=== PATIENT | male | born 1960 | race Caucasian/White ===

== ENCOUNTER → 2019-09-19 12:31 | Outpatient (CLI) | payer OTHER, SELFPAY ==
--- NOTE | 2019-09-19 | DI.RAD.S_ITS ---
PROCEDURE: XR PELVIS 1-2V INDICATIONS: Left leg/hip weakness TECHNIQUE: 2 view(s) of the pelvis acquired. COMPARISON: None. FINDINGS: Bones: No fractures or dislocations. No suspicious bony lesions. There is moderate superior joint space narrowing seen of both hips, with associated remodeling changes with subchondral sclerosis and osteophyte formation. Soft tissues: Visualized bowel gas pattern is normal. No suspicious soft tissue calcifications. IMPRESSION: Moderate degenerative changes are seen of both hips. Dictated by: Luis Felipe Steele M.D. on 09/19/2019 at 12:16 Approved by: Luis Felipe Steele M.D. on 09/19/2019 at 12:17
== END ==
LOC: RAD 12:35
PROVIDERS: PCP Physician Assistant Medical; Referring Provider Physician Assistant Medical; Visit Provider Physician Assistant Medical
DX: G83.14 Monoplegia of lower limb affecting left nondominant side (principal)
CPT/HCPCS: 72170

== ENCOUNTER 2019-10-26 21:51 | Emergency (ER) | payer OTHER, SELFPAY ==
--- NOTE | 2019-10-26 22:02 | ED.FALL ---
HPI - Fall General Chief Complaint: Weakness Stated Complaint: GLF Time Seen by Provider: 10/26/19 21:52 Source: patient and EMS Mode of arrival: EMS Limitations: no limitations History of Present Illness HPI Narrative: 59M non smoker, daily drinker presents by EMS after suffering a fall just prior to arrival. Patient states that he has been suffering trouble with his left leg since a fall in April and states that it has been weak ever since. He has an upcoming MRI to evaluate. He denies any worsening symptoms. He has no trouble controlling bowel or bladder. He denies any numbness or tingling. He states that he had a few drinks tonight was walking out to his car when his leg gave out and he fell. He denies any head or neck pain. He has had no nausea, vomiting or diarrhea. He denies any changes in medications. Denies any new injury MD complaint: fall Onset (ago): minute(s) Fall from: standing Fall witnessed: no Place fall occurred: work Loss of consciousness: none Prolonged down time: no Symptoms prior to fall: lightheadedness Context: tripped/slipped and alcohol use Related Data Previous Rx's Medication Instructions Recorded potassium chloride 20 meq PO DAILY #7 tab 10/26/19 Review of Systems Constitutional Constitutional: Denies chills, Denies fatigue, Denies fever(s), Denies frequent falls, Denies lethargy and Denies weakness Eyes Eyes: Denies change in vision, Denies eye discharge, Denies irritation and Denies loss of vision ENT Ears, Nose, Mouth, and Throat: Denies change in voice, Denies dizziness, Denies neck pain, Denies sore throat and Denies throat swelling Cardiovascular Cardiovascular: Denies chest pain, Denies irregular heart rhythm, Denies lightheadedness, Denies palpitations, Denies dyspnea, Denies dyspnea on exertion and Denies orthopnea Respiratory Respiratory: Denies cough, Denies dyspnea, Denies dyspnea on exertion and Denies wheezing Gastrointestinal Gastrointestinal: Denies abdominal pain, Denies change in bowel habits, Denies diarrhea, Denies nausea and Denies vomiting Genitourinary Genitourinary: Denies hematuria, Denies flank pain, Denies urinary incontinence and Denies urinary urgency Musculoskeletal Musculoskeletal: Denies back pain, Denies muscle weakness, Denies neck pain, Denies numbness and Denies tingling Integumentary/Breasts Skin/Breast: Denies pruritus, Denies erythema, Denies rash and Denies wounds Neurologic Neurologic: Denies behavioral changes, Denies confusion, Denies dizziness, Denies frequent falls, Denies loss of vision, Denies numbness, Denies tingling and Denies weakness Psychiatric Psychiatric: Denies anxiety, Denies behavioral changes, Denies confusion, Denies depression, Denies homicidal ideation and Denies suicidal ideation Endocrine Endocrine: Denies fatigue, Denies flushing and Denies palpitations Hematologic/Lymphatic Hematologic/Lymphatic: Denies easy bruising Allergic/Immunologic Allergic/Immunologic: Denies urticaria, Denies throat swelling and Denies wheezing Exam Narrative Exam Narrative: GENERAL: [59] year old patient appears stated age. Well-nourished, well-developed patient, in mild distress. HEAD: Atraumatic. Normocephalic. EYES: Pupils equal round and reactive. Extraocular motions intact. No scleral icterus. No injection or drainage. ENT: Nose without bleeding, purulent drainage. Throat without erythema, tonsillar hypertrophy or exudate. Airway patent. NECK: Trachea midline. Non tender CARDIOVASCULAR: Regular rate and rhythm without murmurs, gallops, or rubs. RESPIRATORY: Clear to auscultation. Breath sounds equal bilaterally. No wheezes, rales, or rhonchi. GASTROINTESTINAL: Abdomen soft, non-tender, nondistended. EXTREMITIES: No edema or joint tenderness. BACK: Back nontender and free of any obvious external abnormalities. No CVA tenderness, or vertebral point tenderness. There are no symptoms of cauda equina such as saddle anesthesia, and decreased reflexes, decreased sensation or strength. NEURO: AOx3. SKIN: No rash or erythema of visible areas Initial Vital Signs Initial Vital Signs: Vital Signs Temperature 98.1 F 10/26/19 22:14 Pulse Rate 74 10/26/19 22:14 Respiratory Rate 20 10/26/19 22:14 Blood Pressure 124/68 10/26/19 22:14 Pulse Oximetry 94 10/26/19 22:14 Course Course Course Narrative: Patient observed for a few hours, potassium replaced and patient achieved clinical sobriety. He is speaking with outs lowering in ambulating without any difficulty whatsoever. His is at the bedside and insists upon taking him home patient given return precautions and has had his questions answered to his apparent satisfaction Orders Ordered: ED Orders 10/26/19 22:54 CT lumbar spine wo con Stat CT pelvis wo con Stat 10/26/19 23:10 Urinalysis and Microscopic Stat Urine Drug Screen, Rapid Stat Discontinued Medications Sodium Chloride (Normal Saline 0.9%) 1,000 mls @ 125 mls/hr IV CONT WILLIAMS Last Admin: 10/27/19 00:32 Dose: Not Given Documented by: KENIA Potassium Chloride 60 meq/ (Sodium Chloride) 530 mls @ 88.333 mls/hr IV NOW ONE Stop: 10/27/19 04:35 Last Admin: 10/27/19 00:32 Dose: Not Given Documented by: KENIA Potassium Chloride (Potassium Chloride) 40 meq PO NOW ONE Stop: 10/26/19 23:13 Last Admin: 10/26/19 23:26 Dose: 40 meq Documented by: LISA Potassium Chloride (Potassium Chloride) 40 meq PO NOW ONE Stop: 10/26/19 23:13 Last Admin: 10/27/19 00:11 Dose: 40 meq Documented by: KENIA Vital Signs Vital signs: Vital Signs - 8 hr 10/27/19 00:14 10/27/19 00:34 Pulse Rate 92 H 92 H Respiratory Rate 18 14 Blood Pressure 162/93 H Blood Pressure [Left Arm] 124/68 Pulse Oximetry 96 96 MDM - Fall Lab Data Result diagrams: 10/26/19 21:55 10/26/19 21:55 Labs: Lab Results 10/26/19 10/26/19 10/26/19 Range/Units 21:55 21:55 21:55 WBC 7.5 (4.5-11.0) X10^3/uL RBC 3.07 L (4.5-5.9) X10^6/uL Hgb 11.2 L (13.5-17.5) g/dL Hct 31.1 L (41-53) % MCV 101.1 H (80-100) fL MCH 36.4 H (26-34) PG MCHC 36.0 (30-36) % RDW 15.0 H (11.6-14.8) % Plt Count 267 (150-400) X10^3/uL Neut % (Auto) 72.6 (50-75) % Lymph % (Auto) 17.3 L (25-40) % Ford % (Auto) 7.7 (3-14) % Eos % (Auto) 1.4 L (2-4) % Baso % (Auto) 1.0 (0-2) % Neut # (Auto) 5400 (3577-6841) /uL Lymph # (Auto) 1300 (8480-6509) /uL Ford # (Auto) 600 (0-900) /uL Eos # (Auto) 100 (0-450) /uL Baso # (Auto) 100 (0-100) /uL PT 12.0 (10.1-12.7) SECONDS INR 1.0 (0.9-1.3) Sodium 127 L (137-145) mmol/L Potassium 3.0 L (3.4-5.1) mmol/L Chloride 90 L (98-107) mmol/L Carbon Dioxide 21 L (22-32) mmol/L BUN 5 L (9-20) mg/dL Creatinine 0.72 (0.66-1.25) mg/dL Estimated GFR > 60.0 (>60) mL/min BUN/Creatinine Ratio 6.9 (6-22) Glucose 154 H (80-110) mg/dL Calcium 8.9 (8.4-10.2) mg/dL Total Bilirubin 0.3 (0.2-1.3) mg/dL AST 30 (17-59) IU/L ALT 15 (<50) IU/L Alkaline Phosphatase 74 (38-126) U/L Total Creatine Kinase 168 (55-170) U/L CK-MB (CK-2) 3.38 H (<2.37) ng/mL CK-MB (CK-2) Rel Index 2.0 (1.5-5.0) % Troponin I 0.015 (0.01-0.034) ng/mL C-Reactive Protein < 0.5 (<1.0) mg/dL NT-Pro-B Natriuret Pep 524 H (<125) pg/mL Total Protein 6.8 (6.3-8.2) g/dL Albumin 4.0 (3.5-5.0) g/dL Globulin 2.8 (1.7-4.1) g/dL Albumin/Globulin Ratio 1.4 (1.0-2.8) Urine Color Urine Appearance Urine pH (4.5-8.0) Ur Specific [place] (1.000-1.035) Urine Protein (Negative) Urine Glucose (UA) (Negative) g/dL Urine Ketones (NEGATIVE) Urine Occult Blood (Negative) Urine Nitrate (Negative) Urine Bilirubin (NEGATIVE) Urine Urobilinogen (0.2) E.U./dL Ur Leukocyte Esterase (NEGATIVE) Urine RBC (0-5/HPF) Urine WBC (0-5/HPF) Urine Bacteria (None) Ur Culture Indicated? Micro UA Comment U Opiates 300ng/mL cut (Negative) Ur Oxycodone Screen (Negative) Urine Methadone Screen (Negative) Ur Barbiturates Screen (Negative) U Tricyclic Antidepress (Negative) Ur Phencyclidine Scrn (Negative) Ur Amphetamines Screen (Negative) U Methamphetamines Scrn (Negative) Ur MDMA Scrn (Ecstasy) (Negative) U Benzodiazepines Scrn (Negative) Urine Cocaine Screen (Negative) U Marijuana (THC) Screen (Negative) Ethyl Alcohol ( - 10) mg/dL 10/26/19 10/26/19 10/26/19 Range/Units 21:55 23:10 23:10 WBC (4.5-11.0) X10^3/uL RBC (4.5-5.9) X10^6/uL Hgb (13.5-17.5) g/dL Hct (41-53) % MCV (80-100) fL MCH (26-34) PG MCHC (30-36) % RDW (11.6-14.8) % Plt Count (150-400) X10^3/uL Neut % (Auto) (50-75) % Lymph % (Auto) (25-40) % Ford % (Auto) (3-14) % Eos % (Auto) (2-4) % Baso % (Auto) (0-2) % Neut # (Auto) (5433-7569) /uL Lymph # (Auto) (7039-7861) /uL Ford # (Auto) (0-900) /uL Eos # (Auto) (0-450) /uL Baso # (Auto) (0-100) /uL PT (10.1-12.7) SECONDS INR (0.9-1.3) Sodium (137-145) mmol/L Potassium (3.4-5.1) mmol/L Chloride (98-107) mmol/L Carbon Dioxide (22-32) mmol/L BUN (9-20) mg/dL Creatinine (0.66-1.25) mg/dL Estimated GFR (>60) mL/min BUN/Creatinine Ratio (6-22) Glucose (80-110) mg/dL Calcium (8.4-10.2) mg/dL Total Bilirubin (0.2-1.3) mg/dL AST (17-59) IU/L ALT (<50) IU/L Alkaline Phosphatase (38-126) U/L Total Creatine Kinase (55-170) U/L CK-MB (CK-2) (<2.37) ng/mL CK-MB (CK-2) Rel Index (1.5-5.0) % Troponin I (0.01-0.034) ng/mL C-Reactive Protein (<1.0) mg/dL NT-Pro-B Natriuret Pep (<125) pg/mL Total Protein (6.3-8.2) g/dL Albumin (3.5-5.0) g/dL Globulin (1.7-4.1) g/dL Albumin/Globulin Ratio (1.0-2.8) Urine Color Yellow Urine Appearance Clear Urine pH 6.0 (4.5-8.0) Ur Specific [place] <=1.005 (1.000-1.035) Urine Protein Negative (Negative) Urine Glucose (UA) Trace H (Negative) g/dL Urine Ketones Negative (NEGATIVE) Urine Occult Blood Negative (Negative) Urine Nitrate Negative (Negative) Urine Bilirubin Negative (NEGATIVE) Urine Urobilinogen 0.2 (0.2) E.U./dL Ur Leukocyte Esterase Negative (NEGATIVE) Urine RBC None seen (0-5/HPF) Urine WBC None seen (0-5/HPF) Urine Bacteria None seen (None) Ur Culture Indicated? Cult not indicated Micro UA Comment Microscopic normal U Opiates 300ng/mL cut Negative (Negative) Ur Oxycodone Screen Negative (Negative) Urine Methadone Screen Negative (Negative) Ur Barbiturates Screen Negative (Negative) U Tricyclic Antidepress Negative (Negative) Ur Phencyclidine Scrn Negative (Negative) Ur Amphetamines Screen Negative (Negative) U Methamphetamines Scrn Negative (Negative) Ur MDMA Scrn (Ecstasy) Negative (Negative) U Benzodiazepines Scrn Negative (Negative) Urine Cocaine Screen Negative (Negative) U Marijuana (THC) Screen Negative (Negative) Ethyl Alcohol 201 H ( - 10) mg/dL Discharge Plan Departure Patient Disposition: Home Clinical Impression: Acute hypokalemia, Acute hyponatremia, Alcohol abuse Discharge Date/Time: 10/27/19 00:35 Instructions: Alcohol Use Disorder Activity Restrictions/Additional Instructions: *You have been diagnosed with [chronic leg weakness, hypokalemia, hyponatremia, alcohol intoxication] *What to do: *Take medications as directed *Follow up with your primary care provider in 2-3 days, call for an appointment. Let them know you were seen in the Emergency Department and that we ask that you be seen in follow up *Return to ER if you should have any new, worsening or concerning symptoms Prescriptions: New potassium chloride 20 mEq tablet,ER particles/crystals 20 meq PO DAILY Qty: 7 RF: 0 Referrals: Mandi Garcia [Primary Care Provider] -
[2019-10-26 22:14] VITALS: BP 124/68; PULSE 74; RESP 20; TEMP 36.7; O2SAT 94
[2019-10-26 22:15] LABS: Add Manual Diff / Slide Review NO; Basophils Absolute Auto 100 /uL (0-100); Eosinophils Absolute Auto 100 /uL (0-450); Eosinophils Percent Auto 1.4 % (2-4); Hematocrit 31.1 % (41-53); Hemoglobin 11.2 g/dL (13.5-17.5); Lymphocytes Absolute Auto 1300 /uL (1100-4500); Lymphocytes Percent Auto 17.3 % (25-40); Mean Corpuscular Hemoglobin 36.4 PG (26-34); Mean Corpuscular Volume 101.1 fL (80-100); Monocytes Absolute Auto 600 /uL (0-900); Monocytes Percent Auto 7.7 % (3-14); Neutrophils Absolute Auto 5400 /uL (1500-7000); Neutrophils Percent Auto 72.6 % (50-75); Platelet Count 267 X10^3/uL (150-400); Red Blood Cell Count 3.07 X10^6/uL (4.5-5.9); White Blood Cell Count 7.5 X10^3/uL (4.5-11.0)
[2019-10-26 22:16] LABS: Ethanol (ETOH) 201 mg/dL
[2019-10-26 22:18] LABS: Alanine Aminotransferase 15 IU/L (<50); Albumin Globulin Ratio 1.4 (1.0-2.8); Alkaline Phosphatase 74 U/L (38-126); Aspartate Aminotransferase 30 IU/L (17-59); BUN Creatinine Ratio 6.9 (6-22); Bilirubin Total 0.3 mg/dL (0.2-1.3); Blood Urea Nitrogen 5 mg/dL (9-20); Calcium 8.9 mg/dL (8.4-10.2); Carbon Dioxide 21 mmol/L (22-32); Chloride 90 mmol/L (98-107); Creatine Kinase 168 U/L (55-170); Estimated Glomerular Filt Rate > 60.0 mL/min (>60); Globulin 2.8 g/dL (1.7-4.1); Glucose 154 mg/dL (80-110); HEMOLYSIS 22 (0-50); Sodium 127 mmol/L (137-145); Total Protein 6.8 g/dL (6.3-8.2)
[2019-10-26 22:20] LABS: C-Reactive Protein Quant < 0.5 mg/dL (<1.0)
[2019-10-26 22:27] LABS: NT-proBNP (BNP-Adult 18+) 524 pg/mL (<125); Troponin I 0.015 ng/mL (0.01-0.034)
[2019-10-26 22:30] LABS: Creatine Kinase MB 3.38 ng/mL (<2.37)
--- NOTE | 2019-10-26 22:54 | DI.CT.S_ITS ---
PROCEDURE: CT PEL WO CON INDICATIONS: legs gave out, collapse TECHNIQUE: Noncontrast 3 mm axial sections acquired through the bony pelvis, with coronal and sagittal reformatting. COMPARISON: [facility], CT, CT LUMBAR SPINE WO CON, 10/26/2019, 23:11. FINDINGS: Image quality: Excellent. Bones: No fractures or dislocation. There is moderate to severe degenerative disc disease at the lumbosacral junction with mild facet arthropathy. Soft tissues: There is marked distention of the urinary bladder which demonstrates mild wall thickening. There is distention of the visualized distal ureters bilaterally. The prostate is mildly enlarged. No intracranial free fluid within the visualized pelvis. No hip joint effusions. IMPRESSION: 1. No fractures or dislocation. 2. Marked distention of the urinary bladder with partially visualized hydroureter. Findings are nonspecific and suggest bladder outlet obstruction. Concordant with preliminary interpretation. Dictated by: Jonny Reyna M.D. on 10/27/2019 at 9:05 Approved by: Jonny Reyna M.D. on 10/27/2019 at 9:11
--- NOTE | 2019-10-26 22:54 | DI.CT.S_ITS ---
PROCEDURE: CT LUMBAR SPINE WO CON INDICATIONS: legs gave out, collapse TECHNIQUE: Noncontrast 3 mm thick sections acquired from the T12 level to the sacrum. Sagittal and coronal reformats were constructed. For radiation dose reduction, the following was used: automated exposure control. COMPARISON: None. FINDINGS: Image quality: Excellent. Bones: There is normal bony alignment. No acute vertebral body compression fractures. No suspicious lytic or blastic bony lesions. Central spinal caliber is of normal overall caliber. No pars defects. Severe L5-S1 degenerative disc changes. Mild L1-L2 and L2-L3 degenerative changes. Soft tissues: No retroperitoneal masses or hematomas. Visualized aorta is normal in caliber. Bilateral hydronephrosis noted. The visualized portion of the urinary bladder is markedly distended. IMPRESSION: 1. No fracture. No acute osseous lesion. If symptoms and/or clinical suspicion for pathology persists, evaluation with MRI may be helpful for further assessment. 2. Multilevel degenerative disc disease. 3. Fully distended urinary bladder and bilateral hydronephrosis. Dictated by: Marci Carrion MD, PhD on 10/27/2019 at 9:00 Approved by: Marci Carrion MD, PhD on 10/27/2019 at 9:11
[2019-10-26 23:15] LABS: Bacteria Urine None Seen; RBC Urine None Seen (0-5/HPF); WBC Urine None Seen (0-5/HPF)
[2019-10-26 23:17] LABS: Appearance Urine UA CLEAR; Bilirubin Urine UA NEGATIVE (NEGATIVE); Color Urine UA YELLOW; Glucose Urine UA TRACE g/dL (Negative); Ketones Urine UA NEGATIVE (NEGATIVE); Leukocyte Esterase Urine UA NEGATIVE (NEGATIVE); Nitrite Urine UA NEGATIVE (Negative); Occult Blood Urine UA NEGATIVE (Negative); Protein Urine UA NEGATIVE (Negative); Specific Gravity Urine UA <=1.005 (1.000-1.035); Urobilinogen Urine UA 0.2 E.U./dL (0.2)
[2019-10-26 23:21] LABS: UR Morphine/Opiate cutoff 300 Negative (Negative); Ur Creatinine Normal (Normal); Ur Specific Gravity Normal (Normal); Urine Amphetamines Negative (Negative); Urine Cocaine Negative (Negative); Urine MDMA Negative (Negative); Urine Methamphetamines Negative (Negative); Urine Phencyclidine Negative (Negative); Urine Tetrahydrocannabinol Negative (Negative); Urine pH Normal (Normal)
[2019-10-26 23:22] LABS: Urine Barbiturates Negative (Negative); Urine Benzodiazepines Negative (Negative); Urine Methadone Negative (Negative); Urine Oxycodone Negative (Negative); Urine Tricyclic Antidepressant Negative (Negative)
[2019-10-26 23:24] LABS: Culture Indicated Urine Cult Not Indicated; Urine Comments Microscopic Normal
[2019-10-26] MEDS: POTASSIUM CHLORIDE 20 MEQ/15 ML UDC 40 MEQ PO (23:26)
[2019-10-27] MEDS: POTASSIUM CHLORIDE 20 MEQ/15 ML UDC 40 MEQ PO (00:11)
[2019-10-27 00:14] VITALS: BP 124/68; PULSE 92; RESP 18; O2SAT 96
[2019-10-27 00:34] VITALS: BP 162/93; PULSE 92; RESP 14; O2SAT 96
== END 2019-10-27 00:35 | disposition home or self-care (01) ==
PROVIDERS: Emergency Provider Emergency Medicine; PCP Physician Assistant Medical
DX: R53.1 Weakness (principal); E87.6 Hypokalemia; E87.1 Hypo-osmolality and hyponatremia; F10.129 Alcohol abuse with intoxication, unspecified; Y90.7 Blood alcohol level of 200-239 mg/100 ml
CPT/HCPCS: 36415; 72131; 72192; 80053; 80305; 80320; 81001; 82550; 82553; 83880; 84484; 85025; 85610; 86140; 93005; 99284

== ENCOUNTER → 2020-02-12 10:49 | Outpatient (CLI) | payer OTHER, SELFPAY ==
[2020-02-12 11:32] LABS: Add Manual Diff / Slide Review NO; Basophils Absolute Auto 100 /uL (0-100); Basophils Percent Auto 0.9 % (0-2); Eosinophils Absolute Auto 100 /uL (0-450); Eosinophils Percent Auto 1.5 % (2-4); Hematocrit 35.6 % (41-53); Hemoglobin 12.1 g/dL (13.5-17.5); Lymphocytes Absolute Auto 1100 /uL (1100-4500); Lymphocytes Percent Auto 13.5 % (25-40); Mean Corpuscular HGB Conc 33.9 % (30-36); Mean Corpuscular Hemoglobin 32.9 PG (26-34); Monocytes Absolute Auto 700 /uL (0-900); Monocytes Percent Auto 8.7 % (3-14); Neutrophils Absolute Auto 5900 /uL (1500-7000); Neutrophils Percent Auto 75.4 % (50-75); Platelet Count 283 X10^3/uL (150-400); Red Blood Cell Count 3.67 X10^6/uL (4.5-5.9); White Blood Cell Count 7.8 X10^3/uL (4.5-11.0)
[2020-02-12 11:40] LABS: Hemoglobin A1C% w Est Avg Glu 6.3 % (4.0-6.0)
[2020-02-12 12:10] LABS: Alanine Aminotransferase 10 IU/L (<50); Albumin 4.2 g/dL (3.5-5.0); Albumin Globulin Ratio 1.6 (1.0-2.8); Alkaline Phosphatase 76 U/L (38-126); Aspartate Aminotransferase 15 IU/L (17-59); BUN Creatinine Ratio 15.2 (6-22); Bilirubin Total 0.4 mg/dL (0.2-1.3); Blood Urea Nitrogen 10 mg/dL (9-20); Calcium 9.4 mg/dL (8.4-10.2); Carbon Dioxide 27 mmol/L (22-32); Chloride 97 mmol/L (98-107); Cholesterol 150 mg/dL (140-199); Estimated Glomerular Filt Rate > 60.0 mL/min (>60); Globulin 2.6 g/dL (1.7-4.1); Glucose 104 mg/dL (80-110); HDL Cholesterol 65 mg/dL (40-60); HEMOLYSIS < 15 (0-50); LDL Cholesterol Calculated 40 mg/dL (<100); Potassium 4.2 mmol/L (3.4-5.1); Sodium 132 mmol/L (137-145); Total Protein 6.8 g/dL (6.3-8.2); Triglycerides 224 mg/dL (35-150)
== END ==
PROVIDERS: PCP Physician Assistant Medical; Referring Provider Family Medicine; Visit Provider Family Medicine
DX: E11.42 Type 2 diabetes mellitus with diabetic polyneuropathy (principal)
CPT/HCPCS: 36415; 80053; 80061; 83036; 85025

== ENCOUNTER → 2020-05-02 09:13 | Outpatient (CLI) | payer OTHER, SELFPAY ==
[2020-05-02 11:03] LABS: COVID19 -Nasal RAPID Negative (Negative)
== END ==
PROVIDERS: PCP Family Medicine; Visit Provider Specialist
DX: Z11.59 Encounter for screening for other viral diseases (principal); Z01.812 Encounter for preprocedural laboratory examination
CPT/HCPCS: 87635; C9803

== ENCOUNTER 2020-05-03 14:16 | Day surgery (SDC) | payer OTHER, SELFPAY ==
--- NOTE | 2020-05-03 | PATH_ITS ---
[facility] Accession Number: [id number] . 01 Material submitted: . PART A: colon - CECUM POLYP PART B: colon - POLYP AT 125 CM ASCENDING TRANSVERSE COLON PART C: colon - POLYP @ 115 CM . 01 Clinical history: . SDC . 02 Diagnosis: A. Cecum, Polyp, Biopsy: Tubular adenoma. . B. Ascending, Transverse Colon, Polyp At 125 CM, Biopsy: Tubular adenoma. . C. Colon, Polyp At 115 CM, Biopsy: Tubulovillous adenoma. No evidence of malignancy or high-grade dysplasia. I 05/04/2020 1242 Local . 02 Electronically signed: . Venecia George MD, Pathologist NPI- [id number] . 01 Gross description: . Part A: CECUM POLYP: Received in formalin is 1 fragment(s) of walker, soft tissue measuring 0.4 x 0.3 x 0.3 cm submitted entirely in 1 cassette(s) Part B: POLYP AT 125 CM ASCENDING TRANSVERSE COLON: Received in formalin is 1 fragment(s) of walker, soft tissue measuring 1.2 x 0.5 x 0.4 cm submitted entirely in 1 cassette(s) Part C: POLYP @ 115 CM: Received in formalin are multiple fragment(s) of walker, soft tissue measuring 0.1 x 0.1 x 0.1 cm to 0.5 x 0.5 x 0.4 cm submitted entirely in 1 cassette(s) /ERICH 05/04/2020 0146 Local . 02 Pathologist provided ICD-10: D12.0, D12.6 . 02 CPT . 642197, 215113, [id number] Performed at: [address] [id number] MD Jonny Armstrong MD Phone: [phone] Performed at: 02 [facility] [id number] [place] [id number] MD Venecia George MD Phone: [phone]
[2020-05-03 14:51] VITALS: BP 159/100; PULSE 77; RESP 16; TEMP 36.3; O2SAT 98; BMI 34.5
[2020-05-03] MEDS: LACTATED RINGERS 1,000 ML 200 ML IV (15:00)
--- NOTE | 2020-05-03 15:46 | PM.HP.1 ---
History of Present Illness History of Present Illness Date Patient Seen: 05/03/20 Time Patient Seen: 15:30 Chief complaint: SDC Narrative: Patient is a gentleman here for screening colonoscopy. Last exam was about 10 years ago. No history of polyps and a family history colon cancer. Patient History Medical History Erectile dysfunction HTN (hypertension) Lower urinary tract symptoms (LUTS) Type 2 diabetes mellitus with peripheral neuropathy Family & Social History Social History: household members significant other Tobacco & Substance use: Smoking Status Never smoker alcohol intake former Substance Use Type does not use Meds Home Medications and Allergies Home Medications Medication Instructions Recorded Confirmed Type insulin glargine 100 unit/mL (3 24 unit SUBCUT DAILY 11/26/19 05/03/20 History mL) subcutaneous pen lisinopril 20 1 tab PO DAILY 11/26/19 05/03/20 History mg-hydrochlorothiazide 12.5 mg tablet metformin 500 mg tablet 1,000 mg PO BID 11/26/19 05/03/20 History sildenafil 25 mg tablet See Rx Instructions .ROUTE 01/18/20 05/03/20 Rx .COMPLEX #10 tab Allergies Allergy/AdvReac Type Severity Reaction Status Date / Time No Known Drug Allergies Allergy Verified 05/03/20 14:32 Review of Systems Review of Systems Narrative: Sugar was 131. Has some leg swelling and shortness breath with exertion but no history of heart attack or heart problems. ROS: Yes All systems reviewed with the patient and are negative except as otherwise documented Exam Vital Signs (past 8 hours): - 05/03/20 14:51 Temperature 97.4 F L Pulse Rate 77 Respiratory Rate 16 Blood Pressure 159/100 H Pulse Oximetry 98 Oxygen Delivery Method Room Air Narrative Exam Narrative: Pleasant cooperative patient no apparent distress. Lungs are clear to auscultation. No rales or rhonchi. Heart regular rate and rhythm no murmur gallop. Abdomen is soft nontender without mass. No obvious hernias. Patient is alert and oriented x3. Assessment & Plan Assessment & Plan narrative: The patient for a screening colonoscopy. I have discussed the procedure with them. Risks of bleeding, perforation which would necessitate major operation, failure to find remove all lesions, the potential tattoo were all discussed. All questions were answered. They wished to proceed.
--- NOTE | 2020-05-03 15:47 | PM.PREOP ---
Pre-operative Note COVID-19 COVID-19 status: Negative Result date/Date tested (Pos, Neg/Pending): 04/30/20 Interval Note History & Physical reviewed/Exam performed by Physician: Yes Changes to H&P: No ASA Class (for procedural sedation): III
[2020-05-03] MEDS: fentaNYL 250 MCG/5 ML INJ IV (15:52)
[2020-05-03] MEDS: MIDAZOLAM 5 MG/5 ML VIAL IV (15:52)
[2020-05-03 16:25] VITALS: BP 144/91; PULSE 80; RESP 18; TEMP 36.2; O2SAT 97
[2020-05-03 16:30] VITALS: BP 131/84; PULSE 76; RESP 18; O2SAT 96
[2020-05-03 16:35] VITALS: BP 139/84; PULSE 72; RESP 16; O2SAT 97
[2020-05-03 16:42] VITALS: BP 141/88; PULSE 72; RESP 14; O2SAT 96
--- NOTE | 2020-05-03 16:45 | PM.OP.ENDO ---
Operative Date/Time/Diagnoses Date of procedure: 05/03/20 Time of procedure: 16:30 Pre-op diagnosis: Screening examination. Last colonoscopy about 10 years ago. Post-op diagnosis: same (Three polyps snared with hot snare. Sigmoid diverticulosis.) Procedure & Clinicians Study performed: Colonoscopy with hot snare polypectomy Same procedure as scheduled: Yes Indications: Screening Surgeon: Estrada Yañez Procedure Notes SCOAP/Timeout: Performed Procedure in detail: The patient was placed in the left lateral decubitus position and underwent IV sedation directed by the surgeon consisting of fentanyl and Versed. Digital exam was unremarkable. No masses felt in his prostate. Prostate is slightly enlarged.. The scope was inserted and advanced through the rectum into the sigmoid, descending, transverse, and ascending colon. A large polyp was seen in the transverse colon on the way in and I decided to remove it on the way out.. The cecum was reached identified by the ileocecal valve and the appendiceal opening. The ileocecal valve was successfully but briefly cannulated. The terminal ileum was normal in appearance. A polyp in the cecum was identified and snared and removed. The scope was then gradually brought out. Additional Polyps were found at 125 and 115 cm from the anal verge. These appear to be in the transverse colon. One of these was the polyp seen on the way in. The smaller of the 2 at 125 cm had a flat base and was snared with a hot snare and completely removed. The larger of the 2 was on a pedicle. I initially placed a snare but could not get it down low enough to be on the pedicle and so I transected the lesion and then Frans[place] near the base and cauterized as well. It appeared to be completely destroyed. The polyp was then retrieved. We continue to gradually bring the scope out.. The scope ultimately was retroflexed in the rectum. The appearance was normal. The scope was removed and the patient tolerated the procedure well. The prep was adequate for identifying polyps 5 mm or larger. Scope withdrawal time: 8 minutes(20 total) Sedation minutes: 32 Findings: diverticulosis (Sigmoid) and polyp (Multiple) Specimen(s): other (Polyps) Complications: none Post-procedure Recommendations: Colonscopy in 3 years (Due to the large size of 1 polyp) Follow up: as needed Disposition: PACU
== END 2020-05-03 17:04 | disposition home or self-care (01) ==
PROVIDERS: PCP Family Medicine; Referring Provider Family Medicine; Visit Provider Specialist
PROC: 0DJD8ZZ Inspection of Lower Intestinal Tract, Via Natural or Artificial Opening Endoscopic (ICD-10-PCS; CPT 45378; principal; 2020-05-03 15:15)
DX: Z12.11 Encounter for screening for malignant neoplasm of colon (principal); K57.30 Diverticulosis of large intestine without perforation or abscess without bleeding; D12.0 Benign neoplasm of cecum; D12.2 Benign neoplasm of ascending colon; D12.6 Benign neoplasm of colon, unspecified
CPT/HCPCS: 45385; 99152; 99153; J2250; J3010